=== PATIENT | male | born 1975 | race Caucasian/White ===

== ENCOUNTER 2018-12-01 00:18 | Emergency (ER) | payer OTHER ==
[~2018-12-01] VITALS: Ht 175.3 cm; Wt 81.6 kg
[2018-12-01 00:29] VITALS: BP 156/100; Ht 175.3 cm; Wt 81.6 kg
== END 2018-12-01 01:31 | disposition home or self-care (01) ==
LOC: ED 00:18
DX: M54.9 Dorsalgia, unspecified (principal); J45.909 Unspecified asthma, uncomplicated; I10 Essential (primary) hypertension; Z88.2 Allergy status to sulfonamides; Z88.6 Allergy status to analgesic agent; Z88.5 Allergy status to narcotic agent